=== PATIENT | female | born 1980 | race Caucasian/White ===

== ENCOUNTER → 2017-04-11 | Day surgery (SDC) | payer OTHER ==
[~2017-04-11] VITALS: Ht 149.9 cm; Wt 50.8 kg
[~2017-04-11] MED LIST: ANTIVERT12.5 M1 PO; ATIVAN0.5 M1 PO; FIORICET 50-301 EACH PO; MOTRIN 600 MG600 MG PO; PERCOCET 325 MG1 TA2 PO; PREDNISONE20 M1 PO; ULTRAM50 M1 PO; ZOFRAN4 M1 SL; ZOFRAN4 M2 PO; ZYRTEC10 M3 PO
--- NOTE | 2017-04-11 12:29 | Operative Report ---
Operative/Inv Procedure Report Surgery Date: 04/11/17 Name of Procedure: D&C hysteroscopy cryoablation the uterus under ultrasound guidance Pre-Operative Diagnosis: Metromenorrhagia Post-Operative Diagnosis: Same Estimated Blood Loss: scant Surgeon/Real Time Analyst: CAROLINE COREAS,FLAKO Nava Anesthesia: moderate sedation Operative/Procedure Note Note: Procedure note patient was taken the operating room placed supine position after adequate anesthesia patient placed in dorsolithotomy position the vagina from dorsal fashion bladder was catheterized examination anesthesia performed on at this point the CO2 tenaculum placed on the Intralipid cervix on patient tolerated that well cervix is dilated 29 Hegar to left insertion hysteroscope scope was inserted and direct visualization using gas is scope was removed sharp curettage endometrial lining performed sharp curettage and cervical lining performed 2 specimen sent to pathology at this point on the bladder was catheterized 250 mL normal saline ultrasound guidance the probe cryoprobe her option was inserted into the uterus 8 minutes on each side nice I performed under ultrasound guidance the probe was then heated and removed hemostasis was apparent on since removed from the vagina patient was returned spine position fluid was removed from the bladder patient tolerated the procedure well Pacheco was removed she was returned to supine position she was awakened from anesthesia and transferred recovery room awake alert counts correct
--- NOTE | 2017-04-11 15:29 | ULTRASOUND REPORT ---
EXAMINATION: US INTRAOPERATIVE CLINICAL INFORMATION: 37-year-old female undergoing cryoablation in operating room with Dr. Rubio. COMPARISON: None TECHNIQUE: Intraoperative sonographic imaging assistance was provided to Dr. Rubio within the operating room. There are total of ten saved transabdominal images of the pelvis. FINDINGS: The uterus is anteflexed. Dynamic imaging of the uterus was performed during the cryoablation procedure. Please refer to the operative report. IMPRESSION: Sonographic imaging assistance was provided to the operating room.
== END ==
LOC: STS 04-04 03:06
DX: N92.1 Excessive and frequent menstruation with irregular cycle (principal); Z90.721 Acquired absence of ovaries, unilateral
CPT/HCPCS: 76998; 81025; J2250